=== PATIENT | female | born 1975 | race Two or more races ===

== ENCOUNTER 2025-04-02 13:14 | Emergency (ER) | payer OTHER ==
[~2025-04-02] VITALS: Ht 165.1 cm; Wt 56.2 kg
[2025-04-02] MEDS ORDERED: 0.9 % SODIUM CHLORIDE 500 ML IV ONE (15:30)
[2025-04-02] MEDS ORDERED: FAMOTIDINE/PF 20 MG/2 ML VIAL IV ONE (15:30)
[2025-04-02 15:54] LABS: BASO % 0.3 % (0.1-1.2); EOS # 0.06 (0.04-0.54); EOS % 0.6 % (0.7-7.0); LYMPH # 1.90 (1.18-3.74); LYMPH % 18.4 % (19.3-53.1); MEAN PLATELET VOLUME 10.00 fl (9.4-12.4); MONO # 0.78 (0.24-0.82); MONO % 7.5 % (4.7-12.5); NEUT # 7.55 (1.56-6.13); NEUT % 73.0 % (34.0-71.1); RED CELL DISTRIBUTION WIDTH 13.2 % (11.6-14.4)
[2025-04-02 16:29] LABS: INR 1.0
[2025-04-02 16:33] LABS: URINE APPEARANCE Clear; URINE BILIRRUBIN Negative (NEGATIVE); URINE BLOOD Trace; URINE COLOR Yellow; URINE GLUCOSE Negative (NEGATIVE); URINE KETONE Negative (NEGATIVE); URINE LEUKOCYTE Small; URINE NITRATE Negative; URINE PROTEIN Negative (NEGATIVE); URINE UROBILINOGEN 0.2 E.U./dl
[2025-04-02 16:37] LABS: URINE BACTERIA 592.7 uL (0.0-1933); URINE EPITHELIAL CELLS 15.9 uL (0.0-38.8); URINE RBC 25.8 uL (0.0-20.8); URINE WBC 50.1 uL (0.0-23.2)
[2025-04-02 16:38] LABS: ALT/SGPT 21.0 U/L (12-78); AST/SGOT 27.0 U/L (15-37); BILIRUBIN TOTAL 0.47 mg/dL (0.3-1.2); BUN CREA RATIO 14.0 (7.0-25.0); CREATININE SERUM 0.57 mg/dL (0.55-1.02); GFR 111.82; GLOBULINA 4.2 G/DL (2.4-3.5); GLUCOSE FASTING 106.0 mg/dL (65-100); OSMOLALITY SERUM 280.0 MOSM/KG (275-295)
[2025-04-02 16:40] LABS: URINE CAST 0.43 uL (0.0-1.40)
[2025-04-02] MEDS ORDERED: PEPCID AC20 MG PO (18:55)
== END 2025-04-02 19:31 ==
LOC: ER 13:14
PROVIDERS: Preventive Medicine Public Health & General Preventive Medicine
DX: K21.9 Gastro-esophageal reflux disease without esophagitis (principal); R07.89 Other chest pain; Z88.2 Allergy status to sulfonamides

== ENCOUNTER 2025-04-23 21:13 | Emergency (ER) | payer OTHER ==
[~2025-04-23] VITALS: Ht 162.6 cm; Wt 56.2 kg
[~2025-04-23 21:13] MED LIST: PEPCID AC20 MG PO
[2025-04-23 21:26] VITALS: BP 127/73; O2SAT 100
[2025-04-23] MEDS ORDERED: TETANUS & DIPHTHERIA TOX,ADULT 0.5 ML VIAL IM STA (21:45)
[2025-04-23] MEDS ORDERED: CEFTRIAXONE SODIUM 1,000 MG VIAL IM STA (21:45)
[2025-04-23] MEDS ORDERED: CEFTRIAXONE SODIUM 1,000 MG VIAL ONE (21:48)
[2025-04-23] MEDS ORDERED: DIPHTH,PERTUSS(ACELL),TET VAC 0.5 ML SYRINGE IM ONE (21:48)
== END 2025-04-23 22:10 | disposition home or self-care (01) ==
LOC: ER 21:13
DX: S91.312A Laceration without foreign body, left foot, initial encounter (principal); X58.XXXA Exposure to other specified factors, initial encounter; Y93.89 Activity, other specified; Y92.89 Other specified places as the place of occurrence of the external cause; Y99.9 Unspecified external cause status; Z88.2 Allergy status to sulfonamides